=== PATIENT | female | born 1990 | race Caucasian/White ===

== ENCOUNTER 2018-04-16 09:49 | Emergency (ER) | payer OTHER ==
[2018-04-16] MEDS ORDERED: DEXAMETHASONE 10 MG/ML VIAL IVP ONE (10:19)
[2018-04-16] MEDS ORDERED: METOCLOPRAMIDE 10 MG/2 ML VIAL IVP ONE (10:19)
[2018-04-16] MEDS ORDERED: NS 1,000 ML IV ONE (10:19)
--- NOTE | 2018-04-16 10:19 | EDPHY ---
General Time Seen by Provider: 04/16/18 10:05 Narrative: CHIEF COMPLAINT: Migraine HISTORY OF PRESENT ILLNESS: Patient presents with complaints of migraine headache. She states this is a right-sided headache that started 11 hr ago abruptly. This is a typical presentation for the patient. She says it is severe but not the worst headache of her life. She has had many migraines like this. She took ibuprofen with no improvement. She has no neck pain or stiffness. No fever chills. Some nausea and photophobia. Some phonophobia. She has no prophylaxis for this. She has traveling from [place], [place]. She has been in [place] for a month, arriving to [place] on Tuesday. No trauma or injury. No neck pain or stiffness. No fever. No other associated complaints or modifying factors past REVIEW OF SYSTEMS: Ten systems reviewed and are negative unless otherwise noted in the HPI PCP: In [place], [place] SPECIALISTS: None PAST MEDICAL HISTORY: Attention deficit hyperactivity disorder, migraines PAST SURGICAL HISTORY: No recent surgeries SOCIAL HISTORY: Nonsmoker. Lives in [facility], currently attending [employer]. FAMILY HISTORY: Noncontributory EXAMINATION General Appearance: Alert, no distress. Tearful but consolable. Well- developed well-nourished. Head: normocephalic, atraumatic Eyes: Pupils equal and round, no conjunctival pallor or injection ENT, Mouth: Mucous membranes moist Neck: Normal inspection, supple, non-tender. No rigidity or meningismus. Respiratory: Lungs are clear to auscultation Cardiovascular: Regular rate and rhythm. No murmur Back: Scoliotic appearance. No tenderness, crepitus or deformity. Neurological: GCS 15. A&O, nonfocal, strength is symmetric in all 4 limbs. No pronator drift. Normal [id number] Skin: Warm and dry, no rash redness Extremities: Nontender, no pedal edema. Symmetric range of motion. Psychiatric: Mood and affect normal DIFFERENTIAL DIAGNOSES: Including but not limited to migraine, atypical migraine, subarachnoid hemorrhage, meningitis MDM: 10:10 a.m. Right-sided headache that patient states is a migraine. Her exam clinically matches this. There is no evidence of stroke or trauma. I have ordered medications for her and placed her on nasal cannula oxygen. She is in no acute distress vital signs well within normal limits. Neck is supple without meningismus. 11:40 a.m. Patient re-evaluated. Reports that her headache has minimally improved. I have ordered Toradol and will re-evaluate. 12:25 p.m. Patient re-evaluated. She says that her headache is improving. It is not resolved but is not tolerable. I discussed that that is the goal for treatment of migraines is tolerable pain level. She has no neck pain or stiffness. She is comfortable and asking to be discharged home at this time. We discussed continuation of antihistamines, anti-inflammatories, rest and avoiding aggravating factors. Discussed ED precautions for sudden change in headache, neck pain or stiffness, fever or unilateral complaints. She is comfortable this plan and discharged home stable condition. SUPERVISION: This patient was independently evaluated without direct involvement of or examination by the attending physician. - History Smoking Status: Never smoked - Objective Vital Signs: Initial Vital Signs Temperature (C) 97.5 F 04/16/18 09:52 Heart Rate 69 04/16/18 09:52 Respiratory Rate 18 04/16/18 09:52 O2 Sat (%) 98 04/16/18 09:52 O2 Delivery Mode Room Air Allergies/Adverse Reactions: No Known Allergies Allergy (Verified 04/16/18 09:57) Home Medications: Medication Instructions Recorded Codeine/Butalbital/ASA/Caffein 1 - 2 each PO Q4 PRN #12 capsule 04/16/18 [Fiorinal with Codeine #3 Cap] Ondansetron Odt [Zofran Odt 4 mg 4 mg PO Q6 PRN #12 tab 04/16/18 (*)] Laboratory Results: Laboratory Results 04/16/18 10:47 04/16/18 04/16/18 10:47 10:47 Sodium 138 mEq/L mEq/L (135-145) Potassium 4.0 mEq/L mEq/L (3.3-5.0) Chloride 106 mEq/L mEq/L (97-110) Carbon Dioxide 23 mEq/l mEq/l (22-31) Anion Gap 9 mEq/L mEq/L (8-16) BUN 14 mg/dL mg/dL (7-23) Creatinine 0.7 mg/dL mg/dL (0.6-1.0) Estimated GFR > 60 Glucose 77 mg/dL mg/dL (70-100) Calcium 10.0 mg/dL mg/dL (8.5-10.4) Beta HCG, Qual NEGATIVE Medications Given: Discontinued Medications Dexamethasone (Decadron Injection) 10 mg IVP EDNOW ONE Stop: 04/16/18 10:20 Last Admin: 04/16/18 10:48 Dose: 10 mg Diphenhydramine HCl (Benadryl Injection) 50 mg IVP EDNOW ONE Stop: 04/16/18 10:20 Last Admin: 04/16/18 10:49 Dose: 50 mg Sodium Chloride (Ns) 1,000 mls @ 0 mls/hr IV ONCE ONE; Wide Open PRN Reason: Protocol Stop: 04/16/18 10:20 Last Admin: 04/16/18 10:46 Dose: 1,000 mls Ketorolac Tromethamine (Toradol) 30 mg IVP EDNOW ONE Stop: 04/16/18 11:40 Last Admin: 04/16/18 11:47 Dose: 30 mg Metoclopramide HCl (Reglan Injection) 10 mg IVP EDNOW ONE Stop: 04/16/18 10:20 Last Admin: 04/16/18 10:50 Dose: 10 mg Departure - Departure Disposition: Home, Routine, Self-Care Clinical Impression: Migraine Qualifiers: Migraine type: unspecified Status migrainosus presence: without status migrainosus Intractability: not intractable Qualified Code(s): G43.909 - Migraine, unspecified, not intractable, without status migrainosus Condition: Good Instructions: Migraine Headache (ED), Acute Headache (ED) Additional Instructions: 1. Continue [id number] antihistamine as discussed for the next 2-3 days 2. Medication as prescribed as needed 3. ED precautions for sudden change in headache, neck pain or stiffness, fever or unilateral complaints Referrals: Candice Szymanski MD [[facility] [place] - As per Instructions Prescriptions: Codeine/Butalbital/ASA/Caffein [Fiorinal with Codeine #3 Cap] 1 - 2 each PO Q4 PRN #12 capsule PRN Reason: Headache Ondansetron Odt [Zofran Odt 4 mg (*)] 4 mg PO Q6 PRN #12 tab PRN Reason: Nausea/Vomiting, Use 1st
[2018-04-16] MEDS ORDERED: KETOROLAC 30 MG/1 ML SDV IVP ONE (11:39)
[2018-04-16 14:06] VITALS: BP 105/59
== END 2018-04-16 14:12 | disposition home or self-care (01) ==
DX: G43.909 Migraine, unspecified, not intractable, without status migrainosus (principal); E86.9 Volume depletion, unspecified
CPT/HCPCS: 96374; J1100; J1200; J1885; J2270; J2765